=== PATIENT | female | born 1980 | race Caucasian/White ===

== ENCOUNTER 2018-01-22 19:48 | Inpatient (IN) | payer MEDICAID ==
[~2018-01-22] VITALS: Ht 170.2 cm; Wt 68.0 kg
[2018-01-22] MEDS ORDERED: LEVONOR-ETH ESTRAD 0.1-0.02 MG (20:15)
[2018-01-22] MEDS ORDERED: ONDANSETRON 4 MG/2 ML VIAL IV ONE (20:45)
[2018-01-22] MEDS ORDERED: IV NORMAL SALINE 1000 ML BAG IV ONE (20:45)
[2018-01-22] MEDS ORDERED: MORPHINE SULFATE 2 MG/1 ML DISP.SYRIN IV ONE (20:45)
[2018-01-22] MEDS ORDERED: MORPHINE SULFATE 4 MG/1 ML DISP.SYRIN ONE ×2 (20:51→22:09)
[2018-01-22] MEDS ORDERED: ONDANSETRON 4 MG/2 ML VIAL ONE ×2 (21:04→22:09)
[2018-01-22 21:22] LABS: BILIRUBIN,DIRECT 0.2 mg/dL (0.0-0.2); BILIRUBIN,TOTAL 1.2 mg/dL (0.2-1.0); CREATININE 0.9 mg/dL (0.6-1.3); POTASSIUM 3.5 mmol/L (3.5-5.1); TOTAL PROTEIN, SERUM 8.2 g/dL (6.4-8.2)
[2018-01-22 21:34] LABS: BASOPHILS % (AUTO) 0.2 % (0.0-2.0); HEMATOCRIT 40.5 % (31.2-41.9); HEMOGLOBIN 13.4 g/dL (10.9-14.3); LYMPHOCYTES # (AUTO) 1.1 K/uL (20.0-40.0); MEAN CORPUSCULAR HEMOGLOBIN 31.4 uug (24.7-32.8); MEAN CORPUSCULAR HGB CONC 33 g/dL (32.3-35.6); MEAN CORPUSCULAR VOLUME 94.7 fL (75.5-95.3); MONOCYTES % (AUTO) 5.3 % (0.0-11.0); NEUTROPHILS # (AUTO) 16.2 K/uL (1.8-8.9); NEUTROPHILS % (AUTO) 88.5 % (38.5-71.5); PLATELET COUNT (AUTO) 337 K/uL (179-408); RED BLOOD CELL COUNT(AUTO) 4.28 MIL/uL (3.63-4.92); WHITE BLOOD COUNT (AUTO) 18.3 K/uL (3.8-11.8)
[2018-01-22] MEDS ORDERED: MORPHINE SULFATE 4 MG/1 ML DISP.SYRIN IV ONE (22:00)
[2018-01-22] MEDS ORDERED: ONDANSETRON IV *ER 4 MG/2 ML VIAL IV ONE (22:00)
--- NOTE | 2018-01-22 22:24 | NUR ---
PT WENT DOWN TO CT SCAN. PT'S BEST FRIEND WAITING AT BEDSIDE
[2018-01-22] MEDS ORDERED: PIPERACILLIN SODIUM/TAZOBACTAM 3.375 G in IV DEXTROSE 5% 50 ML IV ONE (23:15)
[2018-01-22] MEDS ORDERED: PIPERACILLIN/TAZOBACTAM/D5W 50 ML IV ONE (23:18)
[2018-01-23] VITALS (9 sets, daily range): BP systolic 118–149; BP diastolic 64–86
--- NOTE | 2018-01-23 00:08 | NUR ---
GAVE REPORT TO PT PENDING TRANSFER TO [facility]
--- NOTE | 2018-01-23 00:15 | NUR ---
Received patient from ER. Ushered patient safely to room. C/O 8/10 pain in the abdominal sections.Belongings list done. Body assessment done, No skin issues. Ambulatory with steady gait. Room will be kept clutter free. Bed in low and locked position. Will continue to monitor.
--- NOTE | 2018-01-23 00:40 | NUR ---
PT TRANSFERRED TO [facility].
[2018-01-23] MEDS ORDERED: Z GUARD REMEDY PASTE 57 GM TUBE TOP PRN (01:15)
[2018-01-23] MEDS: IV D5 1/2 NS 1000 ML 1,000 ML IV PRN ×2 (01:24→14:17)
[2018-01-23 01:34] LABS: *BILIRUBIN,URIN NEGATIVE (NEGATIVE); *BLOOD, URINE 1+ (NEGATIVE); *CLARITY,URINE CLEAR (CLEAR); *COLOR,URINE YELLOW (YELLOW); *KETONES,URINE 3+ (NEGATIVE); *PROTEIN,URINE NEGATIVE (NEGATIVE); *UROBILINOGEN,URINE 0.2 E.U./dl (NORMAL); LEUKOCYTE ESTERASE ,URINE NEGATIVE (NEGATIVE); NITRITE, URINE NEGATIVE (NEGATIVE); PH,URINE 5.5 (5.0-8.0); UGLUCOSE NEGATIVE (NEGATIVE)
[2018-01-23] MEDS ORDERED: MORPHINE SULFATE 2 MG/1 ML DISP.SYRIN ONE ×2 (01:42→05:54)
[2018-01-23] MEDS: MORPHINE SULFATE 2 MG/1 ML DISP.SYRIN IV PRN ×2 (01:46→05:59)
[2018-01-23 01:49] LABS: BACTERIA,URINE NONE SEEN /HPF (NONE SEEN); SQUAMOUS EPITHELIAL CELL,UR FEW /HPF (NONE SEEN); WBC,URINE 0-3 /HPF (0-3)
--- NOTE | 2018-01-23 04:37 | NUR ---
0400 VITALS 100.2 TEMPERATURE. COOLING MEASURES. PAGED CONCRETE PANEL INSTALLER DOCTOR PAGED. WILL CLOSELY MONITOR.
[2018-01-23] MEDS ORDERED: ACETAMINOPHEN 325 MG TABLET PO PRN (04:45)
--- NOTE | 2018-01-23 05:25 | NUR ---
Patient slept intermittently t/o shift. C/O 10/10 abdominal pain. Meds given, stated relief. A/O x 4. Able to make needs known. IVF infusing. Temp. 100.2. MD aware, new orders was in place. Cooling measures. All meds given as ordered. No adverse effects. Safety and comfort measures maintained t/o shift. All needs met.
[2018-01-23] MEDS ORDERED: IV NORMAL SALINE 1000 ML BAG IV ONE (07:22)
[2018-01-23] MEDS ORDERED: IRR NORMAL SALINE IRRIGATION 1,000 ML BOTTLE IR ONE (07:22)
[2018-01-23] MEDS ORDERED: CEFAZOLIN 1 G VIAL MC ONE (07:22)
[2018-01-23] MEDS ORDERED: IV LACTATED RINGERS SOLUTION 1,000 ML BAG IV ONE (07:22)
[2018-01-23] MEDS ORDERED: GLYCOPYRROLATE 0.2 MG/ML VIAL MC ONE (07:22)
[2018-01-23] MEDS ORDERED: KETOROLAC TROMETHAMINE 30 MG INJ IM ONE (07:22)
[2018-01-23] MEDS ORDERED: SEVOFLURANE 250 ML BOTTLE IH ONE (07:22)
[2018-01-23] MEDS ORDERED: PROPOFOL 200 MG/20 ML BOTTLE IV ONE (07:22)
[2018-01-23] MEDS ORDERED: NEOSTIGMINE METHYLSULFATE 10 MG/10 ML VIAL IV ONE (07:22)
[2018-01-23] MEDS ORDERED: LIDOCAINE HCL 2% 20 ML VIAL MC ONE (07:22)
[2018-01-23] MEDS ORDERED: ONDANSETRON 4 MG/2 ML VIAL IV ONE (07:26)
--- NOTE | 2018-01-23 07:39 | NUR ---
PATIENT IS AWAKE ALERT AND ORIENTED STATED COMFORTABLE AT THIS TIME REMAIN ON IVF ORDERED WITH NO S/S OF INFILTERATION AT THIS TIME PATIENT IS NOTHING BY MOUTH ORDEREDAWAITING FOR DR GRESHAM VISIT FOR NEXT PLAN OF CARE WILL CONTINUE TO OBSERVE
[2018-01-23] MEDS: ONDANSETRON 4 MG/2 ML VIAL IV PRN ×3 (09:04→21:50)
[2018-01-23] MEDS: MORPHINE SULFATE 4 MG/1 ML DISP.SYRIN IV PRN ×4 (09:05→21:50)
[2018-01-23] MEDS ORDERED: BUPIVACAINE/EPI PF 0.25% 30 ML VIAL ONE (11:04)
[2018-01-23] MEDS ORDERED: FENTANYL CITRATE 100 MCG/2 ML AMPUL ONE (11:05)
[2018-01-23] MEDS ORDERED: MIDAZOLAM HCL 2 MG/2 ML VIAL ONE (11:06)
[2018-01-23] MEDS ORDERED: SUCCINYLCHOLINE CHLORIDE 200 MG/10 ML VIAL ONE (11:06)
[2018-01-23] MEDS ORDERED: ROCURONIUM BROMIDE 50 MG/5 ML VIAL ONE (11:06)
--- NOTE | 2018-01-23 11:20 | NUR ---
PICKED UP BY BED TO OR AWAKE ALERT AND ORIENTED PATIENT DID NOT SIGN THE CONSCENT YET STATED WILL WAIT TO TALK TO DR YEIMI HUANG AND THE OR NURSES AWARE.PATIENT GAVE ME HER 3 RINGS AND A CELL PHONE FOR SAFE KEEPING WHILE SHE GOES FOR SURGERY.
[2018-01-23] MEDS ORDERED: LIDOCAINE 1%-EPI 1:100,000 20 ML VIAL ONE (12:08)
--- NOTE | 2018-01-23 13:45 | NUR ---
PATIENT RETURNED FROM SURGERY AWAKE ALERT AND ORIENTED STATED FEELS COMFORTABLE AT THIS TIME SHE IS ON ROOM AIR WITH 3 SITED ON THE ABDOMEN 2 WITH BAND AID AND ONE WITH 2X2 DRY CLEAN AND INTACT REMAIN WITH IVF ORDERED RIGHT AC WITH NO S/S OF INFILTERATION ON SITE.DVT PUMPS IN USE MADE COMFORTABLE AND WILL CONTINUE TO OBSERVE.
--- NOTE | 2018-01-23 14:20 | NUR ---
C/O ABDOMINAL PAIN MEDICATED WITH MORPHINE ORDERED ICE CHIPS GIVEN AND TOLERATING WELL MADE COMFORTABLE AND WILL CONTINUE TO OBSERVE.
--- NOTE | 2018-01-23 16:15 | NUR ---
PATIENT ASSISTED TO THE BATHROOM AND SHE VOIDED SATISFACTORY AMOUNT AND BACK TO BED MESSAGE SENT TO DR KEVIN DAS PATIENT IS BACK FROM SURGERY AND PER DR GRESHAM ORDERS PATIENT CAN BE DISCHARGED IF MEETS CRITERIA.
--- NOTE | 2018-01-23 18:47 | NUR ---
ASSISTED PATIENT AGAIN TO THE BATHROOM THE SHE WALKED IN THE HALLWAY AROUND THE NURSES STATION WITH SBA MEDICATED FOR PAIN ORDERED AND BACK TO BED INCENTIVE SPIROMETER ENCOURAGED HAS GAS PAINS.
--- NOTE | 2018-01-23 20:00 | NUR ---
Received pt alert and oriented x 4. Pt c/o of abdominal discomfort from surgery and sensitive to touch. Pt encouraged to use incentive spirometer and to rest. No s/s of distress noted at this time. Will continue to provide pain management as needed.
[2018-01-23] MEDS: CEFAZOLIN 1 G in PREMIXED 1 EACH IV SCH (20:04)
--- NOTE | 2018-01-23 21:00 | NUR ---
Received home medication, will endorse to pharmacy in the AM.
[2018-01-24] MEDS: IV D5 1/2 NS 1000 ML 1,000 ML IV PRN (01:35)
[2018-01-24] MEDS: MORPHINE SULFATE 4 MG/1 ML DISP.SYRIN IV PRN ×6 (01:36→23:59)
[2018-01-24] MEDS: CEFAZOLIN 1 G in PREMIXED 1 EACH IV SCH ×3 (03:51→20:06)
[2018-01-24 04:00] VITALS: BP 131/73
--- NOTE | 2018-01-24 05:47 | NUR ---
Pain management provided and medications administered as ordered. Pt states feeling tightness throughout abdominal area, but no distension or discoloration noted on abdomen. No s/s of acute distress. Vital signs WNL. Afebrile. Assisted to bathroom throughout shift and encouraged to use incentive spirometer. Will continue to monitor. Call light within reach.
[2018-01-24 07:07] LABS: BILIRUBIN,TOTAL 0.8 mg/dL (0.2-1.0); CREATININE 0.8 mg/dL (0.6-1.3); MAGNESIUM 1.6 mg/dL (1.8-2.4); PHOSPHOROUS 3.4 mg/dL (2.5-4.9); POTASSIUM 3.1 mmol/L (3.5-5.1); TOTAL PROTEIN, SERUM 6.2 g/dL (6.4-8.2)
[2018-01-24 07:10] LABS: THYROID STIMULATING HORMONE 1.285 mIU/mL (0.358-3.740)
[2018-01-24 07:31] LABS: BASOPHILS % (AUTO) 0.4 % (0.0-2.0); EOSINOPHILS % (AUTO) 0.3 % (0.0-7.0); HEMATOCRIT 31.3 % (31.2-41.9); HEMOGLOBIN 10.8 g/dL (10.9-14.3); LYMPHOCYTES # (AUTO) 1.5 K/uL (20.0-40.0); MEAN CORPUSCULAR HEMOGLOBIN 32.4 uug (24.7-32.8); MEAN CORPUSCULAR HGB CONC 34 g/dL (32.3-35.6); MEAN CORPUSCULAR VOLUME 94.4 fL (75.5-95.3); MONOCYTES # (AUTO) 0.5 K/uL (2.0-10.0); MONOCYTES % (AUTO) 5.9 % (0.0-11.0); NEUTROPHILS # (AUTO) 6.5 K/uL (1.8-8.9); NEUTROPHILS % (AUTO) 75.4 % (38.5-71.5); PLATELET COUNT (AUTO) 218 K/uL (179-408); RED BLOOD CELL COUNT(AUTO) 3.32 MIL/uL (3.63-4.92); WHITE BLOOD COUNT (AUTO) 8.6 K/uL (3.8-11.8)
--- NOTE | 2018-01-24 08:00 | NUR ---
AWAKE ALERT COOPERATE WELL NO ABD PAIN OR N/V ENC TO OOB AMBULATE AND USE INCENTIVE SPIROMETER AT BEDSIDE DOMENICA WELL IVF CONVERT TO HL AND ON REGULAR DIET THIS MORNING RESTING WELL WITH CALL LIGHT IN REACH
--- NOTE | 2018-01-24 11:00 | NUR ---
DR JALLOH SEE PATIENT AND ORDER OK TO D/C HOME TODAY WITH PRECRIPTION, D/C INSTRUCTION REGARDING NEED TO F/U WITH DR JALLOH IN 1 WEEK FOR MARY REMOVE KEEP INCISION CLEAN DRY AT ALL TIME AND CONTINUE HOME MEDICINE PRECRIPTION AND ORDER,VERBALIZES UNDERSTAND AND SIGNS D/C SHEET
[2018-01-24] MEDS ORDERED: MAGNESIUM OXIDE 400 MG TABLET PO ONE (11:45)
[2018-01-24 11:54] VITALS: BP 128/82
[2018-01-24] MEDS ORDERED: POTASSIUM CHLORIDE 20 MEQ TAB.PRT.SR PO ONE (12:00)
--- NOTE | 2018-01-24 12:00 | NUR ---
C/O OF ABD PAIN / STATE NO PASSING GAS ,ASSIST UP AMBULATE IN THE [address] AND SIT IN CHAIR FOR LUNCH DOING WELL
--- NOTE | 2018-01-24 14:30 | NUR ---
C/O ABD INCISION PAIN MORPHINE IVP GIVEN ORDER ABD SLIGHTLY DISTENTION WITH HYPOACTIVE BOWEL SOUND NOTED ,WILL ASSIST TO OOB AND AMBULATE AGAIN
--- NOTE | 2018-01-24 15:00 | NUR ---
DR RAMACHANDRAN WAS INFORM OF PATIENT SITUATION REGARDING D/C HOME ORDER OK TO HOLD DISCHARGE HOME TODAY AND D/C IN AM
[2018-01-24 15:46] VITALS: BP 128/83
--- NOTE | 2018-01-24 17:00 | NUR ---
OOB AMBULATE X2 IN THE [address] STATE NO PASSING GAS YET ONLY BURB PO FLD DOMENICA MOD AMT NO N/V OR PAIN
--- NOTE | 2018-01-24 17:30 | NUR ---
STABLE CONDITION NO ACUTE DISTRESS PAIN UNDER CONTROL SAFETY MEASURE PROVIDED CALL LIGHT IN REACH AND USE INCENTIVE SPIROMETER INSTRUCTION VS STABLE NO FEVER
--- NOTE | 2018-01-24 20:00 | NUR ---
PATIENT IS AWAKE IN BED, SHE'S AAOX3. NO C/O OF PAIN ON ASSESSMENT, PAIN MEDS GIVEN @1930. SAFETY AND COMFORT MEASURES IN PLACE, WILL CONTINUE TO MONITOR PATIENT
[2018-01-24 20:40] VITALS: BP 149/84
[2018-01-24 20:59] VITALS: BP 136/79
[2018-01-25] MEDS: IV D5 1/2 NS 1000 ML 1,000 ML IV PRN (03:06)
[2018-01-25] MEDS: CEFAZOLIN 1 G in PREMIXED 1 EACH IV SCH ×2 (03:07→09:53)
[2018-01-25 04:00] VITALS: BP 139/86
[2018-01-25] MEDS: MORPHINE SULFATE 4 MG/1 ML DISP.SYRIN IV PRN (05:32)
--- NOTE | 2018-01-25 06:07 | NUR ---
PATIENT SLEPT ON AND OFF THROUGHOUT THE SHIFT, PAIN MEDS GIVEN X2. VSS WITHIN PATIENT'S BASELINE, NO FEVER. INCISION SIGHT WITH NO S/S OF INFECTION. NO FURTHER CHANGES IN STATUS. SAFETY MEASURES MAINTAINED AT ALL TIMES
[2018-01-25 06:51] LABS: CREATININE 0.7 mg/dL (0.6-1.3); MAGNESIUM 1.8 mg/dL (1.8-2.4); POTASSIUM 3.6 mmol/L (3.5-5.1)
--- NOTE | 2018-01-25 08:00 | NUR ---
AWAKE ALERT COOPERATE WELL OOB UP AMBULATE SELF IN THE [address] STATE FEEL MUCH BETTER ABD INCISION DSG AND SMALL BANDAGE DRY INTACT CONTINUE IVF INFUSION WELL RAC RESTING WITH CALL LIGHT IN REACH
[2018-01-25] MEDS ORDERED: OXYC-128 PO (08:27)
[2018-01-25] MEDS ORDERED: CEPH-570 PO (08:27)
--- NOTE | 2018-01-25 08:30 | NUR ---
DR RAMACHANDRAN SEE PATIENT AND AM LAB RESULT ORDER OK TO DISCHARGE HOME TODAY WITH PRECRIPTION, D/C INSTRUCTION GIVEN REGARDING F/U WITH OWN PMD AND DR JALLOH IN 1 WEEK TO HAVE STAPLE REMOVE AND CONTINUE HOME MEDICINE ORDER ,VERBALIZES UNDERSTAND
--- NOTE | 2018-01-25 10:00 | NUR ---
PHAMACY EXPLAINED ALL HOME MEDICINE/PRECRIPTION ,VERBALIZES UNDERSTAND AND SIGNS D/C SHEET IV HL WAS DIS CONTINUE
--- NOTE | 2018-01-25 11:00 | NUR ---
D/C HOME WITH HER BELONGING CONDITION STABLE NO PAIN OR N/V ACCOMPANIES WITH FAMILY /
== END 2018-01-25 11:00 | disposition home or self-care (01) | DRG 225 ==
LOC: ER 19:50 → MED 01-23 00:15
PROVIDERS: ADMIT Nurse Practitioner Acute Care; ATTEND Nurse Practitioner Acute Care
PROC: 0DTJ4ZZ Resection of Appendix, Percutaneous Endoscopic Approach (ICD-10-PCS; principal; 2018-01-23 11:30)
DX: K35.3 Acute appendicitis with localized peritonitis (principal); N20.0 Calculus of kidney; K42.9 Umbilical hernia without obstruction or gangrene; E86.0 Dehydration
CPT/HCPCS: 36415; 70030-TC; 71045; 83605; 83690; 83735; 84100; 84443; 84703; 85025; 85730; 87040; 87070; 87075; 87077; 93005; A4217; A4663; J0330; J0690; J1885; J2250; J2270; J2405; J2543; J2710; J3010; J3490; J7030; J7120

== ENCOUNTER 2018-07-18 14:11 | Emergency (ER) | payer MEDICAID, OTHER ==
[~2018-07-18] VITALS: Ht 170.2 cm; Wt 72.6 kg
[~2018-07-18 14:11] MED LIST: CEPH-570 PO; LEVONOR-ETH ESTRAD 0.1-0.02 MG; OXYC-128 PO
--- NOTE | 2018-07-18 15:05 | NUR ---
Patient discharged to home in stable conditon. Written and verbal after care instructions given to patient. Patient verbalizes understanding of instructions.
== END 2018-07-18 15:07 | disposition home or self-care (01) ==
LOC: ER 14:11
DX: S61.052A Open bite of left thumb without damage to nail, initial encounter (principal); Z90.49 Acquired absence of other specified parts of digestive tract; W54.0XXA Bitten by dog, initial encounter; Y93.89 Activity, other specified; Y92.89 Other specified places as the place of occurrence of the external cause; Y99.8 Other external cause status
CPT/HCPCS: 73120; 99284; A4663

== ENCOUNTER 2019-03-29 09:51 | Emergency (ER) | payer OTHER ==
[~2019-03-29] VITALS: Ht 170.2 cm; Wt 71.2 kg
--- NOTE | 2019-03-29 10:03 | NUR ---
Pt seen and examined by Dr Cosby.
[2019-03-29 10:09] VITALS: BP 155/100
--- NOTE | 2019-03-29 10:14 | NUR ---
Patient discharged to home in stable conditon. Written and verbal after care instructions given. Patient verbalizes understanding of instructions.
== END 2019-03-29 10:15 | disposition home or self-care (01) ==
LOC: ER 09:51
DX: H66.91 Otitis media, unspecified, right ear (principal); Z90.49 Acquired absence of other specified parts of digestive tract; Z79.899 Other long term (current) drug therapy
CPT/HCPCS: A4663

== ENCOUNTER 2021-03-03 14:26 | Emergency (ER) | payer OTHER ==
[~2021-03-03] VITALS: Ht 170.2 cm; Wt 77.1 kg
[2021-03-03] MEDS ORDERED: LISI20TA30 PO (14:45)
--- NOTE | 2021-03-03 14:50 | NUR ---
Dr Simmons at the bedside for MSE.
[2021-03-03] MEDS ORDERED: IV NORMAL SALINE 500 ML BAG IV ONE (15:00)
[2021-03-03] MEDS ORDERED: NITROGLYCERIN 0.4 MG/TAB BOTTLE SL ONE ×2 (15:00→15:06)
[2021-03-03] MEDS ORDERED: ASPIRIN 325 MG TABLET PO ONE (15:00)
[2021-03-03] MEDS ORDERED: ASPIRIN 325 MG TABLET ONE (15:05)
--- NOTE | 2021-03-03 15:05 | NUR ---
2nd dose of Nitroglycerin given for pain 11/19, BP 154/97.
--- NOTE | 2021-03-03 15:10 | NUR ---
Pt states chest pressure resolved after 2nd Nitro, Bp ia stable at 143/91.
[2021-03-03 15:24] LABS: BASOPHILS # (AUTO) 0.1 K/uL (0.0-8.0); BASOPHILS % (AUTO) 0.9 % (0.0-2.0); EOSINOPHILS # (AUTO) 0.1 K/uL (0.0-0.7); HEMATOCRIT 38.5 % (31.2-41.9); HEMOGLOBIN 12.9 g/dL (10.9-14.3); LYMPHOCYTES # (AUTO) 2.4 K/uL (20.0-40.0); LYMPHOCYTES % (AUTO) 34.8 % (20.5-51.5); MEAN CORPUSCULAR HEMOGLOBIN 31.6 uug (24.7-32.8); MEAN CORPUSCULAR HGB CONC 34 g/dL (32.3-35.6); MONOCYTES # (AUTO) 0.4 K/uL (2.0-10.0); MONOCYTES % (AUTO) 6.1 % (0.0-11.0); NEUTROPHILS # (AUTO) 3.9 K/uL (1.8-8.9); NEUTROPHILS % (AUTO) 57.2 % (38.5-71.5); PLATELET COUNT (AUTO) 325 K/uL (179-408); RED BLOOD CELL COUNT(AUTO) 4.09 MIL/uL (3.63-4.92); WHITE BLOOD COUNT (AUTO) 6.8 K/uL (3.8-11.8)
[2021-03-03 15:29] LABS: CREATININE 0.8 mg/dL (0.6-1.3); POTASSIUM 3.7 mmol/L (3.5-5.1)
[2021-03-03 15:45] LABS: BILIRUBIN,DIRECT 0.1 mg/dL (0.0-0.2); BILIRUBIN,TOTAL 0.4 mg/dL (0.2-1.0); TOTAL PROTEIN, SERUM 7.3 g/dL (6.4-8.2)
[2021-03-03] MEDS ORDERED: PANTOPRAZOLE SODIUM IV 40 MG in IV DEXTROSE 5% 100 ML IV ONE (15:45)
[2021-03-03] MEDS ORDERED: PANTOPRAZOLE SODIUM 40 MG VIAL ONE (15:55)
[2021-03-03] MEDS ORDERED: PANTOPRAZOLE SODIUM 40 MG VIAL IV ONE (16:00)
--- NOTE | 2021-03-03 16:01 | NUR ---
IV removed. Catheter intact and site benign. Pressure and 4x4 gauze applied to site. No bleeding noted.
[2021-03-03 16:02] VITALS: BP 136/83
--- NOTE | 2021-03-03 16:02 | NUR ---
Patient discharged to home in stable condition. Written and verbal after care instructions given. Patient verbalizes understanding of instructions. Stressed follow up or return to ER for worsening s/s.
== END 2021-03-03 16:03 | disposition home or self-care (01) ==
LOC: ER 14:26
DX: R10.13 Epigastric pain (principal); K21.00 Gastro-esophageal reflux disease with esophagitis, without bleeding; I10 Essential (primary) hypertension
CPT/HCPCS: 36415; 71045; 80048; 80076; 83880; 84484; 84702; 85025; 85730; 93005; 96361; 96374; 99285; C9113; 70030-TC; A4663; J7030

== ENCOUNTER 2022-04-18 08:38 | Emergency (ER) | payer OTHER ==
[~2022-04-18] VITALS: Ht 167.6 cm; Wt 71.7 kg
[~2022-04-18 08:38] MED LIST changes: +LISI20TA30 PO
--- NOTE | 2022-04-18 08:52 | NUR ---
PT IS IN ROOM #2B. DR LEE EVALUATED THE PT.
[2022-04-18] MEDS ORDERED: OXYC5CAP18 PO (08:58)
[2022-04-18] MEDS ORDERED: PENI250T2 PO (08:58)
[2022-04-18] MEDS ORDERED: IBUP-1957 PO (08:58)
--- NOTE | 2022-04-18 09:05 | NUR ---
PT WAS D/C'd TO HOME. D/C INSTRUCTIONS GIVEN TO THE PT BY DR LEE.
[2022-04-18 09:06] VITALS: BP 141/86
== END 2022-04-18 09:07 | disposition home or self-care (01) ==
LOC: ER 08:38
DX: K08.89 Other specified disorders of teeth and supporting structures (principal); I10 Essential (primary) hypertension; Z79.899 Other long term (current) drug therapy
CPT/HCPCS: A4663